=== PATIENT | female | born 1990 | race Caucasian/White ===

== ENCOUNTER 2021-07-16 07:41 | Emergency (ER) | payer OTHER ==
[~2021-07-16] VITALS: Ht 162.6 cm; Wt 83.0 kg
[2021-07-16 07:42] VITALS: BP 129/76
[2021-07-16] MEDS ORDERED: VENL37.598 PO (07:54)
[2021-07-16] MEDS ORDERED: MEDR4PAK PO (08:33)
== END 2021-07-16 08:58 | disposition home or self-care (01) ==
LOC: M ED 07:41
DX: R22.0 Localized swelling, mass and lump, head (principal); R21 Rash and other nonspecific skin eruption; T78.40XA Allergy, unspecified, initial encounter